=== PATIENT | male | born 1945 | race Two or more races ===

== ENCOUNTER 2022-09-02 11:08 | Emergency (ER) | payer OTHER ==
[~2022-09-02] VITALS: Ht 167.6 cm; Wt 68.0 kg
[2022-09-02] MEDS ORDERED: RYTARY ER 36.21 EACH PO (11:25)
[2022-09-02] MEDS ORDERED: BUSPIRONE HCL10 MG PO (11:25)
[2022-09-02] MEDS ORDERED: ATORVASTATIN CA40 MG PO (11:25)
[2022-09-02] MEDS ORDERED: LOSARTAN POTAS100 MG PO (11:25)
[2022-09-02] MEDS ORDERED: DILTIAZEM IV (11:26)
[2022-09-02] MEDS ORDERED: TAMS0.4C PO (11:26)
[2022-09-02] MEDS ORDERED: NIFEDIPINE20 MG PO (11:26)
[2022-09-02] MEDS ORDERED: SINEMET 10-1001 EACH PO (11:26)
[2022-09-02] MEDS ORDERED: LUMIGAN2.5 M1 OP (11:27)
== END 2022-09-02 18:55 | disposition home or self-care (01) ==
LOC: ER 11:08
DX: S01.81XA Laceration without foreign body of other part of head, initial encounter (principal); W19.XXXA Unspecified fall, initial encounter; Y93.E8 Activity, other personal hygiene; Y92.091 Bathroom in other non-institutional residence as the place of occurrence of the external cause; Y99.9 Unspecified external cause status; R41.82 Altered mental status, unspecified